=== PATIENT | female | born 1985 | race Hispanic/Latino ===

== ENCOUNTER → 2018-07-11 | Outpatient (REF) | payer OTHER ==
[2018-07-11 20:39] LABS: FREE T4 0.93 NG/DL (0.76-1.46)
[2018-07-11 20:51] LABS: TOTAL 25(OH) VITAMIN D 17.5 NG/ML (30.0-100.0)
== END ==
LOC: M SFHCLERA 12:51
DX: F41.9 Anxiety disorder, unspecified (principal); E55.9 Vitamin D deficiency, unspecified
CPT/HCPCS: 84443

== ENCOUNTER → 2018-12-19 | Outpatient (REF) | payer OTHER | LOC: M SFHCLERA 10:19 | PROVIDERS: ATTEND Family Medicine | DX: E55.9 Vitamin D deficiency, unspecified (principal) ==

== ENCOUNTER → 2019-10-22 | Outpatient (CLI) | payer OTHER ==
--- NOTE | 2019-10-22 12:16 | REP ---
Clinical: Cough. Technique: PA and lateral. Findings: Diffuse right-sided infiltrate compatible with acute pneumonia. No effusion. No pneumothorax. Mediastinum and cardiac silhouette normal. Skeletal structures intact. Impression: Right-sided pneumonia. Follow-up to resolution recommended. Electronically Signed by Dustin Allen MD 10/22/2019 10:58 A
== END ==
LOC: M LRY 10:34
PROVIDERS: ATTEND Physician Assistant
DX: J18.9 Pneumonia, unspecified organism (principal)
CPT/HCPCS: 71046; G0463